=== PATIENT | male | born 1970 | race African-American/Black ===

== ENCOUNTER 2024-04-28 19:43 | Emergency (ER) | payer OTHER ==
[~2024-04-28] VITALS: Ht 177.8 cm; Wt 82.0 kg
[2024-04-28 19:59] VITALS: O2SAT 98
[2024-04-28 23:39] LABS: BASOPHILS % 2.4 % (0.0-2.0); CHLORIDE 106 mEq/L (98-107); DIFFERENTIAL COMMENT 0; EOSINOPHILS % 1.2 % (0.0-5.0); HEMATOCRIT. 39.4 % (42.0-52.0); HEMOGLOBIN. 13.3 g/dL (14.0-18.0); MEAN CORPUSCULAR HEMOGLOBIN 34.2 pg (28.0-32.0); MEAN CORPUSCULAR HGB CONC 33.8 g/dL (31.0-37.0); MEAN CORPUSCULAR VOLUME 101.2 fL (80.0-94.0); MEAN PLATELET VOLUME 9.2 fl (7.4-10.4); MONOCYTES % 5.2 % (2.0-8.0); NEUTROPHILS % 59.2 % (40.0-76.0); PLATELET 354 x1000/uL (130-400); POTASSIUM 4.9 mEq/L (3.5-5.1); RED BLOOD CELL COUNT 3.89 mill/uL (4.7-6.1); RED CELL DISTRIBUTION WIDTH 13.3 % (11.6-14.6); SODIUM 144 mEq/L (136-145); WHITE BLOOD COUNT 5.4 x1000/uL (4.5-11.0)
[2024-04-28 23:40] LABS: CALCIUM 10.1 mg/dL (8.7-10.4); CARBON DIOXIDE 29 mEq/L (21-32)
[2024-04-28 23:45] LABS: CREATININE 1.3 mg/dL (0.6-1.3); GLUCOSE 132 mg/dL (70-105); UREA NITROGEN BLOOD 17 mg/dL (9-23)
[2024-04-28 23:47] LABS: ALANINE AMINOTRANSFERASE 18 IU/L (10-49); ALBUMIN 5.1 g/dL (3.2-4.8); ASPARTATE AMINOTRANSFERASE 42 IU/L (<34)
[2024-04-28 23:48] LABS: PROTEIN TOTAL 8.6 g/dL (6.0-8.3)
[2024-04-29 01:58] VITALS: BP 174/110; PULSE 73; RESP 16; TEMP 98.5
== END 2024-04-29 02:21 | disposition short-term general hospital (02) ==
LOC: ER 19:43
DX: R53.1 Weakness (principal); H54.7 Unspecified visual loss; Z86.73 Personal history of transient ischemic attack (TIA), and cerebral infarction without residual deficits
CPT/HCPCS: 36415; 71045; 80053; 85025; 99285